=== PATIENT | male | born 1970 | race Caucasian/White ===

== ENCOUNTER 2016-12-16 10:38 | Inpatient (IN) | payer OTHER ==
[~2016-12-16] VITALS: Ht 195.6 cm; Wt 90.7 kg
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
--- NOTE | 2016-12-16 11:43 | NUR ---
DR LOZANO AT BEDSIDE FOR EVAL.
[2016-12-16] MEDS ORDERED: HYDROCODONE/APAP 10/325MG 1 EA TABLET ONE (11:58)
[2016-12-16] MEDS ORDERED: HYDROCODONE/APAP 10/325MG 1 EA TABLET PO ONE (12:00)
--- NOTE | 2016-12-16 12:00 | NUR ---
PT TO RADIOLOGY FOR XRAY.
--- NOTE | 2016-12-16 12:58 | NUR ---
LEGAL SECRETARY AT BEDSIDE FOR BLOOD DRAW.
--- NOTE | 2016-12-16 13:00 | NUR ---
PT TO RADIOLOGY FOR L KNEE CT SCAN VIA [facility].
[2016-12-16 13:03] LABS: BASOPHILS # (AUTO) 0.1 /CMM (0.0-0.2); BASOPHILS % (AUTO) 0.7 % (0.0-2.0); EOSINOPHILS # (AUTO) 0.1 /CMM (0.0-0.7); EOSINOPHILS % (AUTO) 1.2 % (0.0-6.0); HEMATOCRIT 39 % (39-51); HEMOGLOBIN 13.3 g/dL (13.5-17.5); LYMPHOCYTES # (AUTO) 1.8 /CMM (0.8-4.8); MEAN CORPUSCULAR HEMOGLOBIN 32 PG (26.0-33.0); MEAN CORPUSCULAR HGB CONC 34 g/dl (31.0-36.0); MEAN CORPUSCULAR VOLUME 93 fL (80-96); MONOCYTES # (AUTO) 0.8 /CMM (0.1-1.30); NEUTROPHILS # (AUTO) 5.6 /CMM (1.8-8.9); NEUTROPHILS % (AUTO) 67.1 % (43.0-81.0); PLATELET COUNT (AUTO) 213 /CMM (150-450); RDW COEFFICIENT OF VARIATION 12.1 (11.5-15.0); RED BLOOD CELL COUNT(AUTO) 4.23 MIL/uL (4.5-6.0); WHITE BLOOD COUNT (AUTO) 8.4 K/uL (4.3-11.0)
[2016-12-16 13:14] LABS: CALCIUM, SERUM 8.2 mg/dL (8.5-10.1); CREATININE 0.8 mg/dL (0.6-1.3); POTASSIUM 3.8 mmol/L (3.5-5.1)
[2016-12-16 13:24] LABS: INR 0.88 (0.87-1.13); PROTHROMBIN TIME 9.2 SECS (9.5-12.7)
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
--- NOTE | 2016-12-16 15:24 | NUR ---
CALLED [facility] CATH LAB WAS PAGED.
--- NOTE | 2016-12-16 16:20 | NUR ---
REPORT GIVEN TO KALI. PT AWAITING TRANSFER TO FLOOR.
[2016-12-16] MEDS ORDERED: MAGNESIUM HYDROXIDE 30 ML UDC PO PRN (16:30)
[2016-12-16] MEDS ORDERED: Z GUARD REMEDY 2 OZ OINT TP PRN (16:30)
[2016-12-16] MEDS ORDERED: ACETAMINOPHEN 325 MG TABLET PO PRN (16:30)
[2016-12-16] MEDS ORDERED: ONDANSETRON HCL/PF 4 MG/2 ML VIAL IVP PRN (16:30)
[2016-12-16] MEDS ORDERED: MAG HYDROX/AL HYDROX/SIMETH 30 ML UDC PO PRN (16:30)
[2016-12-16 18:21] VITALS: BP 132/84
--- NOTE | 2016-12-16 19:10 | NUR ---
- RECEIVED FROM ER VIA WHEELCHAIR, FULLY AWAKE, ADMISSION ASSESSMENT DONE, CALM & COOPERATIVE, CLAIMED PAIN TO BE 8 BUT PREFERS TO GET THE MORPHINE AFTER DINNER, ; VISITED BY DR. HUTSON.
--- NOTE | 2016-12-16 19:55 | NUR ---
RN INITIAL NOTES: RECEIVED REPORT FORM KALI MOSES, PT IN BED, AWAKE, A/O X2-3, ON 2L VIA NC RESPIRATION EVEN AND UNLABORED, PT C/O 8/10 AIN ON HIS LEFT KNEE REQUESTING FOR PAIN MEDICATION. PT HAS RIGHT AC IV ACCESS PATENT AND FLUSHING WELL, ON HL. PT RECEIVED WITHOUT KNEE IMMOBILIZER ALTHOUGH THERE'S AN ORDER FOR KNEE IMMOBILIZER SINCE 1500. ASKED DAY RN WHY, SHE STATED SHE HAS NO IDEA, WILL CALL [facility] FOR KNEE IMMOBILIZER. FOR THE MEAN TIME, OFFLOADED PT'S KNEE/LEG ON A PILLOW. SAFETY PRECAUTIONS FOR FALL INITAITED CALL LIGHT IN REACH, WILL CONTINUE TO MONITOR.
[2016-12-16] MEDS: MORPHINE SULFATE INJ 2 MG/ML DISP.SYRIN IV PRN (19:56)
--- NOTE | 2016-12-16 19:56 | NUR ---
prn morphine: pt c/o 10/26 pain on his left knee, 10/26 requesting for pain medication, prn morphine 2mg ivp administered to the pt at this time, educate pt regarding medication side effect, will continue to monitor and reassess
[2016-12-16 20:00] VITALS: BP 134/87
[2016-12-17] MEDS: MORPHINE SULFATE INJ 2 MG/ML DISP.SYRIN IV PRN ×2 (00:15→04:40)
--- NOTE | 2016-12-17 00:15 | NUR ---
PRN MORPHINE: PT CALLED C/P LEFT KNEE PAIN PS 10/26 REQUESTING FOR PAIN MEDICATION, PRN MORPHINE 2MG IVP ADMINISTERED TO THE PT AT THIS TIME, WILL CONTINUE TO MONITOR AND REASSES
--- NOTE | 2016-12-17 04:40 | NUR ---
PRN MORPHINE: PT C/O 10/26 LEFT KNEE PAIN REQUESTING FOR MORPHINE, PRN MORPHINE 2MG IVP ADMINISTERED TO THE PT AT THIS TIME, WILL CONTINUE TO MONITOR AND REASSESS
--- NOTE | 2016-12-17 04:51 | NUR ---
RN NOTES: EXPLAINED TO THE PT REGARDING NEED FOR KNEE IMMOBILIZER, GIVEN PT PAIN MEDICINE IN ORDER TO HEP ALLEVIATE PAIN, HOWEVER PT UNABLE TO STRAIGHTEN HIS LEFT LEG/KNEE, EXPLAINED TO THE PT ABOUT THE IMPORTANCE HOWEVER PER PT THAT'S ALL HIS LEG CAN DO,
[2016-12-17 06:41] LABS: CALCIUM, SERUM 8.6 mg/dL (8.5-10.1); CREATININE 0.8 mg/dL (0.6-1.3); MAGNESIUM 2.3 mg/dL (1.8-2.4); PHOSPHORUS 3.7 mg/dL (2.5-4.9); POTASSIUM 4.1 mmol/L (3.5-5.1)
[2016-12-17 06:42] LABS: BASOPHILS % (AUTO) 0.2 % (0.0-2.0); EOSINOPHILS # (AUTO) 0.1 /CMM (0.0-0.7); EOSINOPHILS % (AUTO) 1.9 % (0.0-6.0); HEMATOCRIT 37 % (39-51); HEMOGLOBIN 12.5 g/dL (13.5-17.5); LYMPHOCYTES # (AUTO) 1.9 /CMM (0.8-4.8); LYMPHOCYTES % (AUTO) 28.4 % (20.0-44.0); MEAN CORPUSCULAR HEMOGLOBIN 32 PG (26.0-33.0); MEAN CORPUSCULAR HGB CONC 34 g/dl (31.0-36.0); MEAN CORPUSCULAR VOLUME 93 fL (80-96); MONOCYTES # (AUTO) 0.6 /CMM (0.1-1.30); MONOCYTES % (AUTO) 8.6 % (2.0-12.0); NEUTROPHILS # (AUTO) 4.1 /CMM (1.8-8.9); NEUTROPHILS % (AUTO) 60.9 % (43.0-81.0); PLATELET COUNT (AUTO) 177 /CMM (150-450); RDW COEFFICIENT OF VARIATION 12.9 (11.5-15.0); RED BLOOD CELL COUNT(AUTO) 3.91 MIL/uL (4.5-6.0); WHITE BLOOD COUNT (AUTO) 6.7 K/uL (4.3-11.0)
--- NOTE | 2016-12-17 06:46 | NUR ---
RN CLOSING NOTES: PT IN BED, AWAKE, LAST PAIN MEDS ADMINISTERED AT 0440AM, PT ON RA RESPIRATION EVEN AND UNLABORED. LEFT KNEE IMMOBILIZER IN PLACED. VS REMAINS STABLE, NEEDS ATTENDED, AWAITING ORTHO CONSULT. SAFETY PRECAUTIONS FOR FALL REMAINS ENGAGED, CALL LIGHT IN REACH, WILL ENDORSE TO DAY RN FOR CLARISA.
[2016-12-17 08:00] VITALS: BP 127/80
[2016-12-17] MEDS: HYDROCODONE/APAP 5/325MG 1 EACH TABLET PO PRN ×2 (12:48→14:53)
[2016-12-17 16:00] VITALS: BP 130/82
[2016-12-17] MEDS: HYDROCODONE/APAP 10/325MG 1 EA TABLET PO PRN (20:07)
[2016-12-17] MEDS: ZOLPIDEM TARTRATE 5 MG TABLET PO PRN (20:29)
[2016-12-17 20:39] VITALS: BP 142/85
[2016-12-18] MEDS: HYDROCODONE/APAP 10/325MG 1 EA TABLET PO PRN ×5 (01:26→23:00)
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
--- NOTE | 2016-12-18 07:30 | NUR ---
RN NOTES PATIENT ALERT AND ORIENTED X4. VS STABLE. CONTINUED ON PAIN MANAGEMENT. PRN MEDICATIONS GIVEN ORDERED. NO RESPIRATORY DISTRESS NOTED. IV ACCESS ON RAC PATENT AND INTACT. BED IN LOW POSITION. SIDE RAILS X2. CALL LIGHT WITHIN REACH. CONTINUE TO MONITOR.
[2016-12-18 08:00] VITALS: BP 137/80
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
[2016-12-18 16:00] VITALS: BP 127/75
--- NOTE | 2016-12-18 19:00 | NUR ---
RN CLOSING NOTES PATIENT ALERT AND ORIENTED X4. VS STABLE. PAIN MEDICATIONS GIVEN ORDERED. COMFORT MEASURES PROVIDED. PRN MEDICATIONS GIVEN ORDERED. NO RESPIRATORY DISTRESS NOTED. IV ACCESS ON RAC PATENT AND INTACT. BED IN LOW POSITION. SIDE RAILS X2. CALL LIGHT WITHIN REACH. WILL ENDORSE TO PRODUCT ENGINEERDRAWING FRAME TENDER FOR CONTINUITY OF CARE.
[2016-12-18 20:00] VITALS: BP 136/81
[2016-12-18] MEDS: ZOLPIDEM TARTRATE 5 MG TABLET PO PRN (20:17)
[2016-12-19] MEDS: HYDROCODONE/APAP 10/325MG 1 EA TABLET PO PRN ×3 (03:05→17:52)
--- NOTE | 2016-12-19 06:10 | NUR ---
pt remains in bed slept well overnight ,medicated with norco with good relief, on knee immobilizer,all needs attended.vss,afebrile, no significant changes.
[2016-12-19 08:00] VITALS: BP 119/99
--- NOTE | 2016-12-19 08:00 | NUR ---
m/s supervisor screen printing: initial assessment received pt in bed awake, a/ox4. left lower leg with immobilizer on. p.t. tx in progress. pt refused body assessment. no c/o pain at this time. instructed to call for assistance. will continue to monitor.
--- NOTE | 2016-12-19 09:30 | NUR ---
m/s rug dyer helper: md visit seen and examined by feng alcala ([facility]) with order to d'c to snf. pt wants and agreed to be place to snf. case management making arrangement. cn aware.
--- NOTE | 2016-12-19 10:51 | NUR ---
m/s superannuation clerk: notes c/o 7/10 leg pain, medicated with norco 10/325mg po as ordered. instructed to call for assistance. will continue to monitor.
--- NOTE | 2016-12-19 11:51 | NUR ---
m/s welding lead burner: notes pt appears comfortable. pt lying in bed with eyes close. call light within reach. will continue to monitor.
[2016-12-19] MEDS: HYDROCODONE/APAP 5/325MG 1 EACH TABLET PO PRN (13:12)
--- NOTE | 2016-12-19 13:12 | NUR ---
m/s cyber security engineer: notes pt c/o 09/25 left leg pain, medicated with norco 5/325mg po as ordered. instructed to call for assistance. will continue to monitor.
--- NOTE | 2016-12-19 14:12 | NUR ---
m/s trade mark examiner: notes pt verbalized relief of pain, left leg immobilizer remains intact. will continue to monitor.
--- NOTE | 2016-12-19 15:30 | NUR ---
m/s forest aide: notes estela (case management) called and informed us that pt got accepted at [facility]. pt made aware. report given to flaco (nurse) for continuity of care. left leg immobilizer remains intact. instructed to call for assistance. will monitor.
[2016-12-19 16:00] VITALS: BP 126/75
--- NOTE | 2016-12-19 16:30 | NUR ---
m/s business affairs manager: notes eta for discharge at 1800 per cn. pt made aware. pt has no family provided and ask pt if he wants anyone to be called to let them know, stated, "i have 2 sons in [place], but i don't want them to know." also offered vaccinations (flu and pneumococcal vaccines), but pt refused; also pt refused on admission.
--- NOTE | 2016-12-19 16:50 | NUR ---
m/s layout inspector: d'c instruction discharged instructions with prescription copy given to pt and verbalized understanding. original prescription for norco to be given to facility by ambulance, pt verbalized understanding. h/l removed with tip intact with no bleeding, no redness, and no swelling noted. all d'c papers copy given to pt and belongings returned to pt and signed. awaiting for ambulance. will continue to monitor.
--- NOTE | 2016-12-19 17:30 | NUR ---
m/s wet pour mixer: notes hd completed with zero removed. current b/p 101/43. vancomycin prn not given due to no hd tx. pharmacist made aware, spoke to michelle. Addendum: 12/19/16 at 1735 by DEENA DAVISN above charting error, wrong pt.
--- NOTE | 2016-12-19 17:52 | NUR ---
m/s clinical research manager: notes c/o 7/10 leg pain, medicated with norco 10/325mg po as ordered. instructed to call for assistance. will continue to monitor.
--- NOTE | 2016-12-19 18:20 | NUR ---
m/s certified medicine aide: notes prn ambulance here and report given to one of the crew and endorsed norco prescription to give it to the nurse.
--- NOTE | 2016-12-19 18:40 | NUR ---
m/s thermodynamics engineer: discharged discharged to snf via ambulance in stable condition with his own wheelchair, d'c papers, and belongings accompanied by 2 crew.
== END 2016-12-19 18:45 | DRG 563 ==
LOC: ER 10:40 → MED 16:28
PROVIDERS: ADMIT Family Medicine; ATTEND Family Medicine
DX: S82.142A Displaced bicondylar fracture of left tibia, initial encounter for closed fracture (principal); E44.1 Mild protein-calorie malnutrition; M81.0 Age-related osteoporosis without current pathological fracture; V09.20XA Pedestrian injured in traffic accident involving unspecified motor vehicles, initial encounter; Y92.410 Unspecified street and highway as the place of occurrence of the external cause; Z59.0 Homelessness; E83.51 Hypocalcemia; E88.09 Other disorders of plasma-protein metabolism, not elsewhere classified; Z68.23 Body mass index [BMI] 23.0-23.9, adult; Y93.9 Activity, unspecified; G89.29 Other chronic pain
CPT/HCPCS: 36415; 73502; 73552; 73560-TC; 73590-TC; 73700-TC; 80048-TC; 80061-TC; 82040-TC; 82306; 83735-TC; 84100-TC; 85025-TC; 85610-TC; 85730-TC; 87081-TC; 93971-TC; 97110-TC; 97116-TC; 97530-TC; A4606; J2270; Z7610

== ENCOUNTER 2017-03-07 11:04 | Emergency (ER) | payer OTHER ==
[~2017-03-07] VITALS: Ht 182.9 cm; Wt 90.7 kg
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
[2017-03-07] MEDS ORDERED: MORPHINE SULFATE INJ 4 MG/ML DISP.SYRIN ONE (12:43)
[2017-03-07] MEDS ORDERED: ONDANSETRON 4 MG TAB.RAPDIS ONE (12:43)
[2017-03-07] MEDS ORDERED: MORPHINE SULFATE INJ 2 MG/ML DISP.SYRIN IM ONE (13:00)
[2017-03-07] MEDS ORDERED: ONDANSETRON 4 MG TAB.RAPDIS SL ONE (13:00)
[2017-03-07 13:30] VITALS: BP 128/78
== END 2017-03-07 13:31 | disposition home or self-care (01) ==
LOC: ER 11:07
DX: S89.82XA Other specified injuries of left lower leg, initial encounter (principal); S49.82XA Other specified injuries of left shoulder and upper arm, initial encounter; G89.29 Other chronic pain; X58.XXXA Exposure to other specified factors, initial encounter; Y93.89 Activity, other specified; Y92.89 Other specified places as the place of occurrence of the external cause; Y99.8 Other external cause status
CPT/HCPCS: 96372; 99283; A4606; J2270; Q0162; Z7610

== ENCOUNTER 2017-03-13 15:44 | Emergency (ER) | payer OTHER ==
[~2017-03-13] VITALS: Ht 193 cm; Wt 99.8 kg
[2017-03-13 15:47] VITALS: BP 140/77
[2017-03-13] MEDS ORDERED: MORPHINE SULFATE INJ 4 MG/ML DISP.SYRIN ONE (16:06)
[2017-03-13] MEDS ORDERED: ONDANSETRON 4 MG TAB.RAPDIS ONE (16:07)
[2017-03-13] MEDS: MORPHINE SULFATE INJ 2 MG/ML DISP.SYRIN IM ONE (16:15)
[2017-03-13] MEDS: ONDANSETRON 4 MG TAB.RAPDIS SL ONE (16:16)
== END 2017-03-13 16:45 | disposition home or self-care (01) ==
LOC: ER 15:45
DX: M79.605 Pain in left leg (principal); G89.29 Other chronic pain; F10.10 Alcohol abuse, uncomplicated
CPT/HCPCS: 96372; 99283; A4606; J2270; Q0162; Z7610

== ENCOUNTER 2017-04-10 14:11 | Emergency (ER) | payer MEDICAID, OTHER ==
[~2017-04-10] VITALS: Ht 193 cm; Wt 99.8 kg
[2017-04-10 14:11] VITALS: BP 125/84
== END 2017-04-10 15:18 | disposition home or self-care (01) ==
LOC: ER 14:14
DX: M25.562 Pain in left knee (principal); G89.29 Other chronic pain; F10.10 Alcohol abuse, uncomplicated; Z98.890 Other specified postprocedural states
CPT/HCPCS: 99281; A4606; Z7610; Z7502

== ENCOUNTER 2017-05-14 17:04 | Emergency (ER) | payer MEDICAID ==
[~2017-05-14] VITALS: Ht 170.2 cm; Wt 95.3 kg
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
--- NOTE | 2017-05-14 20:15 | NUR ---
PATIENT IS RESTING IN ER BED, NO DISTRESS NOTED, SKIN WARM AND DRY. 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 WILL CONTINUE TO MONITOR VITAL SIGNS UPDATED.
--- NOTE | 2017-05-14 22:31 | NUR ---
patient is resting in er bed, no distress noted, skin warm and dry, resp even and unlabored. patient is on cardiac cath lab manager. will continue to monitor. vs updates
--- NOTE | 2017-05-15 00:28 | NUR ---
VITAL SIGNS UPDATED. PATIENT IS RESTING IN ER BED, NO DISTRESS NOTED, SKIN WARM AND DRY. WILL CONTINUE TO MONITOR. PATIENT IS ON VICE PRESIDENT INVESTOR RELATIONS
[2017-05-15] MEDS ORDERED: ACETAMINOPHEN 325 MG TABLET ONE (02:53)
[2017-05-15] MEDS ORDERED: ACETAMINOPHEN 325 MG TABLET PO ONE (03:00)
--- NOTE | 2017-05-15 03:00 | NUR ---
patient is now awake, alert & oriented x 3. gave patient water and juice. patient denies any CP/N/V or any other medical complaints other than a DOOLEY. admin 650 tylenol as ordered. patient was DC in stable condition.
[2017-05-15 03:03] VITALS: BP 120/81
== END 2017-05-15 03:04 | disposition home or self-care (01) ==
LOC: ER 17:06
DX: F10.129 Alcohol abuse with intoxication, unspecified (principal); G89.29 Other chronic pain; F17.200 Nicotine dependence, unspecified, uncomplicated; Z59.0 Homelessness; Z99.3 Dependence on wheelchair
CPT/HCPCS: 82962-TC; A4606; Z7610

== ENCOUNTER 2019-07-07 12:47 | Emergency (ER) | payer MEDICAID, OTHER ==
[~2019-07-07] VITALS: Ht 185.4 cm; Wt 113.4 kg
--- NOTE | 2019-07-07 13:00 | NUR ---
Sent by PCP from SNF; + COVID 19 test results today per report C/O cough and congestion x 6 days. Patient a/ox4, breathing even and unlabored, no sob noted, noted with cough, no distress noted. Kept comfortable. Attached to the home health nurse licensed practical.
[2019-07-07 13:19] LABS: BASOPHILS % (AUTO) 1.7 % (0.0-2.0); EOSINOPHILS % (AUTO) 1.1 % (0.0-6.0); HEMATOCRIT 51 % (39-51); HEMOGLOBIN 17.2 g/dL (13.5-17.5); LYMPHOCYTES # (AUTO) 1.5 /CMM (0.8-4.8); LYMPHOCYTES % (AUTO) 52.9 % (20.0-44.0); MEAN CORPUSCULAR HGB CONC 34 g/dl (31.0-36.0); MEAN CORPUSCULAR VOLUME 91 fL (80-96); MONOCYTES # (AUTO) 0.2 /CMM (0.1-1.30); NEUTROPHILS # (AUTO) 1.1 /CMM (1.8-8.9); NEUTROPHILS % (AUTO) 38.3 % (43.0-81.0); PLATELET COUNT (AUTO) 133 /CMM (150-450); RED BLOOD CELL COUNT(AUTO) 5.55 MIL/uL (4.5-6.0); WHITE BLOOD COUNT (AUTO) 2.9 K/uL (4.3-11.0)
[2019-07-07] MEDS ORDERED: DULO60CA64 PO (13:38)
[2019-07-07] MEDS ORDERED: FOLI0.8T PO (13:38)
[2019-07-07] MEDS ORDERED: ATOR20TA PO (13:38)
[2019-07-07] MEDS ORDERED: TIZA2TAB5 PO (13:38)
[2019-07-07 13:40] LABS: ALANINE AMINOTRANSFERASE 45 U/L (12-78); ALBUMIN 4.2 g/dL (3.4-5.0); ALKALINE PHOSPHATASE 98 U/L (46-116); ASPARTATE AMINOTRANSFERASE 27 U/L (15-37); B-TYPE NATRIURETIC PEPTIDE 35 PG/ML (0-125); BILIRUBIN,TOTAL 0.7 mg/dL (0.2-1.0); CALCIUM, SERUM 8.9 mg/dL (8.5-10.1); CARBON DIOXIDE 32 mmol/L (21-32); CHLORIDE 101 mmol/L (98-107); GLUCOSE 96 mg/dL (74-106); SODIUM SERUM 140 mmol/L (136-145); TOTAL PROTEIN, SERUM 8.4 g/dL (6.4-8.2); UREA NITROGEN, BLOOD 12 mg/dL (7-18)
[2019-07-07 13:54] LABS: C-REACTIVE PROTEIN 1.1 mg/dL (0.0-0.9); CREATINE KINASE, TOTAL 164 U/L (39-308); FERRITIN 269 ng/mL (8-388)
--- NOTE | 2019-07-07 13:54 | NUR ---
URINE SAMPLE SENT TO LAB. COVID TEST CANCELLED BY DR. LUQUE, PATIENT IS ALREADY POSITIVE FOR COVID.
[2019-07-07 14:05] LABS: APPEARANCE,URINE Clear (CLEAR); BILIRUBIN,URINE SMALL (NEGATIVE); BLOOD, URINE Negative Ery/uL (NEGATIVE); COLOR,URINE Yellow (YELLOW); KETONES,URINE Negative (NEGATIVE); LEUKOCYTE ESTERASE ,URINE Negative (NEGATIVE); NITRITE, URINE Negative (NEGATIVE); PH,URINE 5.5 (5.0-8.0); PROTEIN,URINE 30 mg/dl (NEGATIVE); UGLUCOSE Negative (NEGATIVE); UROBILINOGEN,URINE 0.2 EU/dL (0.2)
--- NOTE | 2019-07-07 14:20 | NUR ---
CALLED [facility] FOR TRANSPORT BACK TO SNF - [facility]
--- NOTE | 2019-07-07 14:20 | NUR ---
SPOKE WITH SANG AT [facility], SHE WILL BE ACCEPTED BACK IF SHE DOESN'T NEED HOSPITALIZATION,DR LUQUE INFORMED
--- NOTE | 2019-07-07 14:23 | NUR ---
CALLED [facility] FOR TRANSPORT BACK TO SNF - [facility]
--- NOTE | 2019-07-07 14:27 | NUR ---
CALLED [facility] FOR TRANSPORT BACK TO SNF - [facility]- THE AMBULANCE ETA PROVIDED BY [facility] : 1645 PM - HOWEVER - THEY WANT AUTHORIZATION.
--- NOTE | 2019-07-07 14:38 | NUR ---
CALLED [facility] - ETA 1630 - SPOKE TO LESLY - SHANK CUTTER [phone]
--- NOTE | 2019-07-07 14:51 | NUR ---
called [facility] for authorization - requests that the patient be transported using : [facility] : [phone]
[2019-07-07 14:57] LABS: D-DIMER 0.5 mg/L(FEU (0.17-0.50)
--- NOTE | 2019-07-07 15:00 | NUR ---
patient asleep, no distress noted. Needs attended.
--- NOTE | 2019-07-07 15:07 | NUR ---
Called [facility] : spoke to Irma at [phone] Confirmation number: [id number] ETA: no ETA for now per Irma [facility] is aware that the patient testerd + for COVID 19; all crew will be prepared and using appropriate PPE, mask, N94, gown and gloves
[2019-07-07 15:31] LABS: BACTERIA,URINE Few /HPF (None Seen); HYALINE CASTS, URINE Few /LPF (None Seen); RBC,URINE 0-2 /HPF (0-2); SQUAMOUS EPITHELIAL CELL,UR Few /HPF (None Seen); WBC,URINE 0-2 /HPF (0-3)
[2019-07-07] MEDS ORDERED: HYDROCODONE/APAP 5/325MG 1 EACH TABLET ONE (17:49)
[2019-07-07] MEDS ORDERED: HYDROCODONE/APAP 5/325MG 1 EACH TABLET PO ONE (18:00)
--- NOTE | 2019-07-07 18:35 | NUR ---
Note stas in EDM - 07/07/19 at 1836 by ZANDRA S STABLE. REPORT GIVEN TO [facility] EMT. NO DISTRESS NOTED. PATIENT A/OX4, VITAL
--- NOTE | 2019-07-07 18:36 | NUR ---
REPORT GIVEN TO [facility] EMT. NO DISTRESS NOTED. PATIENT A/OX4, BREATHING EVEN AND UNLABORED, VITALS STABLE. FERNANDO AT [facility] AWARE OF PATIENT RETURNING TO FACILITY. IV removed. Catheter intact and site benign. Pressure and 4x4 applied to site. No bleeding noted.Patient discharged to snf in stable condition. Written and verbal after care instructions given. Patient verbalizes understanding of instruction.
[2019-07-07 18:45] VITALS: BP 143/100
== END 2019-07-07 18:46 ==
LOC: ER 12:52
DX: U07.1 COVID-19 (principal); G89.29 Other chronic pain; R94.31 Abnormal electrocardiogram [ECG] [EKG]; Z79.899 Other long term (current) drug therapy
CPT/HCPCS: 36415; 71045-TC; 80053-TC; 81000-TC; 82550-TC; 82728-TC; 83605-TC; 83615-TC; 83880; 84484-TC; 85025-TC; 85378-TC; 85730-TC; 86140-TC; 87040-TC; 87086-TC

== ENCOUNTER 2024-06-05 12:19 | Emergency (ER) | payer OTHER ==
[~2024-06-05] VITALS: Ht 167.6 cm; Wt 74.8 kg
[~2024-06-05 12:19] MED LIST: ATOR20TA PO; DULO60CA64 PO; FOLI0.8T3 PO; TIZA-180 PO
[2024-06-05 12:38] VITALS: BP 123/65; TEMP 97.5; O2SAT 99
[2024-06-05] MEDS ORDERED: ACETAMINOPHEN ES 500 MG TABLET ONE (13:02)
[2024-06-05] MEDS: ACETAMINOPHEN ES 500 MG TABLET PO ONE (13:33)
== END 2024-06-05 16:06 ==
LOC: ER 12:26
DX: M25.562 Pain in left knee (principal); M25.512 Pain in left shoulder; E78.5 Hyperlipidemia, unspecified; J44.9 Chronic obstructive pulmonary disease, unspecified; Z79.899 Other long term (current) drug therapy; G89.29 Other chronic pain; W18.30XA Fall on same level, unspecified, initial encounter; Y93.89 Activity, other specified; Y92.89 Other specified places as the place of occurrence of the external cause; Y99.8 Other external cause status
CPT/HCPCS: 70450-TC; 73030-TC; 73564-TC